=== PATIENT | male | born 1980 | race Caucasian/White ===

== ENCOUNTER 2025-05-02 16:14 | Emergency (ER) | payer OTHER ==
[2025-05-02] MEDS ORDERED: Fluorescein Opthalmic Strip ONE (16:54)
[2025-05-02] MEDS ORDERED: Tetracaine 0.5% PF 4 ML BOT ONE (16:54)
== END 2025-05-02 17:45 | disposition home or self-care (01) ==
LOC: NAV ERS 16:14
DX: S05.01XA Injury of conjunctiva and corneal abrasion without foreign body, right eye, initial encounter (principal); H10.9 Unspecified conjunctivitis; W20.8XXA Other cause of strike by thrown, projected or falling object, initial encounter
CPT/HCPCS: 99283